=== PATIENT | male | born 1995 | race Caucasian/White ===

== ENCOUNTER → 2024-07-09 | Outpatient (CLI) | payer OTHER, SELFPAY ==
--- NOTE | 2024-07-09 14:51 | XR_ITS ---
Examination: Lumbar spine, 5 views Technique: Lumbar spine AP, lateral, coned lateral lower lumbar spine, bilateral obliques 5 views Exam date and time: July 09, 2024 1515 hours INDICATIONS: Lower back pain radiating to the left leg beginning 4 months ago. FINDINGS: Mild diffuse facet arthropathy Satisfactory alignment lumbar vertebral bodies Lumbarization first sacral segment Minimal disc narrowing L5-S1 IMPRESSION: No lumbar fracture Minimal disc narrowing L5-S1
== END | disposition home or self-care (01) ==
LOC: COPL 14:40 → CDIM 07-30 14:07
PROVIDERS: PCP Internal Medicine; Referring Provider Internal Medicine; Visit Provider Internal Medicine
DX: M48.07 Spinal stenosis, lumbosacral region (principal)
CPT/HCPCS: 72110

== ENCOUNTER 2024-08-10 12:06 | Emergency (ER) | payer OTHER, SELFPAY ==
[2024-08-10 12:07] VITALS: BMI 25.7
[2024-08-10 12:38] VITALS: BP 143/84; PULSE 100; RESP 16; TEMP 37.1; O2SAT 97
--- NOTE | 2024-08-10 12:47 | EDNOTE_ITS ---
<Statement entered by Kristi Blackwell MD - 08/12/24 07:12> As co-signing physician, I was present and available for consult prn. I concur with the plan and care as documented by the midlevel provider. Upper Extremity Injury RME/HPI General Chief Complaint: Hand/Wrist Problems Stated Complaint: INJURY TO LEFT HAND YESTERDAY Time Seen by Provider: 08/10/24 12:24 Source: patient Arrival date/time: 08/10/24 12:06 This is a 29-year-old male who presents to the emergency department with complaints of left hand pain. Patient reports that yesterday he accidentally punched a wall after becoming angry. Patient had swelling and pain. CMS intact. Patient did not attempt any interventions or take any OTC medications prior to ED visit. Patient denies any other associated symptoms or aggravating factors. No modifying factors, no radiation, no migration. Mode of arrival: ambulatory Related Data Home Medications ?Medication ?Instructions ?Recorded ?Confirmed celecoxib 200 mg capsule 200 mg PO DAILY 12/31/2008/22 multivitamin (Multiple Vitamins 1 tab PO QAM 12/31/20 12/31/20 tablet) Previous Rx's ?Medication ?Instructions ?Recorded docusate sodium 100 mg capsule 100 mg PO BID #40 caps 01/04/21 (Colace) hydrocodone 5 mg-acetaminophen 325 1 tab PO Q6H PRN pa in (scale score 01/04/21 mg tablet 7-10) #30 tabs ibuprofen 600 mg tablet 600 mg PO Q8H PRN pain (scal e 01/04/21 score 4-6) #15 tabs celecoxib 400 mg capsule (Celebrex) 400 mg PO QDAY PRN pain #20 caps 08/10/24 Allergies Allergy/AdvReac Type Severity Reaction Status Date / Time No Known Allergies Allergy Verified 08/10/24 12:08 Review of Systems Review of Systems Systems Reviewed: All systems reviewed, normal except as documented Narrative Review of Systems: Gen: No fever, no chills, no weight loss EYES: No discharge, no visual changes, no pain HEENT: No ear pain, no congestion, no sore throat PULM: No shortness of breath, no cough, no congestion CV: No chest pain, no dyspnea on exertion, no palpitations GI: No nausea, no vomiting, no diarrhea, no pain, no constipation : No frequency, no urgency, no dysuria Musc/skel: Left hand pain, no back pain Skin: No rash Psyc: No hallucinations, no depression Heme/Lymph: No easy bleeding or bruising tendencies Neuro: No weakness, no headache ED Exam Narrative Physical exam: General: Sittiing in Exam table in no acute distress, answering questions appropriately HENT: normocephalic, atraumatic, EOMI, PERRLA, moist mucous membranes Chest: chest wall is nontender Cardiac: regular rate and rhythm, normal S1 and S2, no murmurs, rubs, or gallops, capillary refill ?2 seconds Pulmonary: clear to auscultation bilaterally, no wheezing, crackles, or rhonchi Abdominal: active bowel sounds, soft, nontender, nondistended Neuro: A&OX3, CN II-XII intact, sensation grossly intact bilaterally in UE and LE. Skin: no rashes, no ecchymosis Ext: Left hand swelling to the lateral aspect metacarpal. CMS intact Course Quality Measures none Orders Category Date Time Status Splint / Immobilizer STAT Care 08/10/24 13:07 Active XR hand comp LT min 3V Stat Exams 08/10/24 12:45 Completed Vital Signs Vital signs: Vital Signs Temperature 98.8 F 08/10/24 12:38 Pulse Rate 100 08/10/24 12:38 Respiratory Rate 16 08/10/24 12:38 Blood Pressure 143/84 H 08/10/24 12:38 Pulse Oximetry (%) 97 08/10/24 12:38 Oxygen Delivery Method Room Air 08/10/24 12:38 Extremity Injury MDM Narrative MDM Narrative:: 29-year-old female presents to the emergency department with complaints of right hand pain. Patient's x-ray does demonstrate a acute communicated displaced fracture distal fifth metacarpal No noted open fracture. No significant significant displacement or multiple fractures. No tendon or neurovascular injury. Patient will be discharged with a ulnar gutter splint follow-up with her PCP Orthopedic referral. Did place a call out to Dr. Brady who will gladly see him in his office on Sunday at 3 PM. Return to the emergency department with any worsening symptoms change in condition. Patient data External records reviewed:: [facility] previous records Clinical information provided by:: patient Social determinants that could affect healthcare access:: none Patient has the following chronic illnesses:: None How is presenting disease/condition affected by chronic disease/condition?: no chronic disease Evaluation data The following diagnostics were reviewed and interpreted by me:: radiology exam(s) Lab and/or radiology exams considered but not ordered:: No Interpretation Summary: Examination: Hand, left 3 views Technique: Hand AP, oblique, lateral 3 views Date and time of exam: August 10, 2024 1249 hrs. Indications: Onset hand pain today Findings: Acute appearing fracture distal fifth metacarpal No dislocation No foreign body Impression: Acute mildly angulated fracture distal fifth metacarpal Medications / Prescriptions Medications or Prescriptions considered but not ordered:: No Medication administrations:: No Consultations Consultation(s) initiated? (list below): No Diagnosis Upper Extremity Injury Differential Diagnosis: sprain and strain of wrist, fracture of wrist, finger sprain, dislocation of finger and fracture of hand Most likely diagnosis given after review of the tests above:: Metacarpal fracture Admission Indicated Admission indicated?: not indicated Admission Request Was there a request for admission?: No Disposition Plan Disposition Plan: Discharge Discharge Attestation Discharge Attestation: The patient and all family members were given an opportunity to ask questions and understood the discharge instructions. Discharge instructions specifically effects, indications for sooner follow up or return to the emergency department, and the expected course of current diagnosis. Patient condition: Stable Discharge Plan Plan Patient Disposition: HOME (Self Care) Patient condition on transfer: Stable Prescriptions/Referrals Prescriptions/Med Rec: New celecoxib [Celebrex] 400 mg capsule 400 mg PO QDAY PRN (Reason: pain) Qty: 20 0RF No Action celecoxib 200 mg capsule 200 mg PO DAILY Patient Comments: TAKE 1 CAPSULE BY MOUTH TWICE A DAY multivitamin [Multiple Vitamins] Tablet 1 tab PO QAM hydrocodone-acetaminophen 5-325 mg tablet 1 tab PO Q6H MDD 4 PRN (Reason: pain (scale score 7-10)) Qty: 30 0RF docusate sodium [Colace] 100 mg capsule 100 mg PO BID Qty: 40 0RF ibuprofen 600 mg tablet 600 mg PO Q8H PRN (Reason: pain (scale score 4-6)) Qty: 15 0RF Referrals: Jose Maria Brady MD [Physician] - In 1 week Problem List Clinical Impression: Fracture of hand Patient/Caregiver Discharge Instructions Discharge Activity: activity as tolerated Education Materials: ED Boxer Fracture Additional Instructions: Your x-ray does demonstrate a acute communicated displaced fracture distal fifth metacarpal You will have a ulnar gutter splint and will need to follow-up with your PCP We did do a orthopedic referral with Dr. Brady he can see you in his office on Sunday at 3 PM Return to the emergency department with any worsening symptoms change in condition. Print Language: Micronesian Stand Alone Forms: Hanny Award Info., Work/School Release, Patient Portal Info Letter PA/WINDING DEPARTMENT SUPERVISOR Supervising Physician PA/WINDING DEPARTMENT SUPERVISOR Supervising Physician: Dr. Clayton
== END 2024-08-10 14:39 | disposition home or self-care (01) ==
PROVIDERS: Emergency Provider Emergency Medicine; PCP Internal Medicine
DX: S62.307A Unspecified fracture of fifth metacarpal bone, left hand, initial encounter for closed fracture (principal); W22.01XA Walked into wall, initial encounter
CPT/HCPCS: 29126; 73130; 99283; A4565

== ENCOUNTER → 2024-09-10 | Outpatient (CLI) | payer OTHER, SELFPAY ==
--- NOTE | 2024-09-10 10:35 | XR_ITS ---
Examination: Hand, left 3 views Technique: Hand AP, oblique, lateral 3 views Date and time of exam: September 10, 2024 1038 hrs. Indications: Fracture fifth metacarpal August 10, 2024 Findings: Significant partial healing fracture distal fifth metatarsal with stable and satisfactory alignment Impression: Significant partial healing fracture distal fifth metatarsal with stable and satisfactory alignment
== END | disposition home or self-care (01) ==
PROVIDERS: PCP Internal Medicine; Referring Provider Orthopaedic Surgery; Visit Provider Orthopaedic Surgery
DX: S92.352A Displaced fracture of fifth metatarsal bone, left foot, initial encounter for closed fracture (principal); X58.XXXA Exposure to other specified factors, initial encounter
CPT/HCPCS: 73130